=== PATIENT | female | born 1990 | race African-American/Black ===

== ENCOUNTER 2018-06-04 01:33 | Emergency (ER) | payer BC ==
[~2018-06-04] VITALS: Ht 160 cm; Wt 173.7 kg
[2018-06-04 01:36] VITALS: BP 155/87
[2018-06-04] MEDS ORDERED: MOBIC15 MG PO (02:26)
== END 2018-06-04 02:34 | disposition home or self-care (01) ==
LOC: ER 01:33
DX: M72.2 Plantar fascial fibromatosis (principal); F17.210 Nicotine dependence, cigarettes, uncomplicated

== ENCOUNTER 2019-08-06 21:47 | Emergency (ER) | payer BC ==
[~2019-08-06] VITALS: Ht 160 cm; Wt 167.8 kg
[~2019-08-06 21:47] MED LIST: MOBIC15 MG PO
[2019-08-06 23:07] LABS: HEMATOCRIT 35.1 % (37.0-47.0); HEMOGLOBIN 10.9 gm/dL (12.0-15.0); MCV 74.3 fL (80.0-100.0); RBC 4.73 mil/uL (4.20-5.00); RDW 17.4 % (10.5-14.5); WBC 6.9 thou/uL (4.0-11.0)
[2019-08-06 23:22] LABS: CALCIUM 8.7 mg/dL (8.5-10.1); CREATININE 0.9 mg/dL (0.6-1.0); POTASSIUM 3.7 mmol/L (3.5-5.1)
[2019-08-07 01:01] VITALS: BP 131/69
== END 2019-08-07 01:01 | disposition home or self-care (01) ==
LOC: ER 21:47
PROVIDERS: Emergency Medicine
DX: J03.90 Acute tonsillitis, unspecified (principal); F17.210 Nicotine dependence, cigarettes, uncomplicated

== ENCOUNTER 2020-07-02 17:46 | Emergency (ER) | payer BC ==
[~2020-07-02] VITALS: Ht 160 cm; Wt 168.7 kg
[2020-07-02 17:46] VITALS: BP 152/86
[2020-07-02] MEDS ORDERED: VENTOLIN HFA 1818 GM INH (19:04)
[2020-07-02] MEDS ORDERED: PROMETH-CODEIN 65 ML PO (19:04)
[2020-07-02] MEDS ORDERED: PREDNISONE 20 M20 MG PO (19:04)
== END 2020-07-02 19:12 | disposition home or self-care (01) ==
LOC: ER 17:46
DX: R05 Cough (principal); R09.81 Nasal congestion; F17.210 Nicotine dependence, cigarettes, uncomplicated; Z20.828 Contact with and (suspected) exposure to other viral communicable diseases

== ENCOUNTER 2021-09-03 20:03 | Emergency (ER) | payer OTHER ==
[~2021-09-03 20:03] MED LIST changes: +PREDNISONE 20 M20 MG PO; +PROMETH-CODEIN 65 ML PO; +VENTOLIN HFA 1818 GM INH
[2021-09-03 22:21] VITALS: BP 143/78
== END 2021-09-03 22:21 | disposition home or self-care (01) ==
LOC: ER 20:03
PROVIDERS: Physician Assistant
DX: Z20.822 Contact with and (suspected) exposure to COVID-19 (principal); F17.210 Nicotine dependence, cigarettes, uncomplicated; E66.9 Obesity, unspecified; Z79.899 Other long term (current) drug therapy